=== PATIENT | female | born 1970 | race American Indian/Alaskan Native ===

== ENCOUNTER 2017-08-06 08:19 | Outpatient (CLI) | payer MEDICARE ==
--- NOTE | 2017-08-06 12:55 | Mammography Report ---
BILATERAL MAMMOGRAM with CAD: HISTORY: Cancer screening. Comparison study is dated June 15, 2015. FINDINGS: The breast tissue is heterogeneously dense, which could obscure detection of small masses (approximately 50%-75% glandular). No mass, distortion, suspicious calcification, or skin change is seen. IMPRESSION: Negative mammogram. There is no mammographic evidence of malignancy. RECOMMENDATION: Follow-up per ACS guidelines. BI-RADS CATEGORY: 1 = Negative ACR BI-RADS MAMMOGRAPHIC CODES: 0 = Needs additional imaging evaluation; 1 = Negative; 2 = Benign; 3 = Probably benign; 4 = Suspicious; 5 = Malignant; 6 = Known biopsy-proven malignancy COMMENT: 1. Dense breast tissue, i.e., adenosis, fibrocystic changes, etc., may obscure an underlying neoplasm. 2. Approximately 10% of cancers are not detected with mammography. 3. A negative mammography report should not delay biopsy if a clinically suspicious mass is present. COMMENT: Patient follow-up letters are generated in [employer].
== END 2017-08-06 08:20 | disposition home or self-care (01) ==
LOC: MAMMO 08:19
PROVIDERS: ATTEND Internal Medicine
DX: Z12.31 Encounter for screening mammogram for malignant neoplasm of breast (principal)
CPT/HCPCS: 77067; G0202

== ENCOUNTER 2018-06-29 05:26 | Emergency (ER) | payer MEDICARE ==
--- NOTE | 2018-06-29 07:00 | XRay Report ---
FINAL REPORT PROCEDURE: XR HIP 2-3V LT TECHNIQUE: LEFT hip radiographs, 2 views each, including AP view of the pelvis. HISTORY: left hip pain COMPARISON: No prior studies are available for comparison. FINDINGS: Fracture (s) and/or Dislocation(s): None . Joint space(s): Normal. Soft tissues: Normal. Bone mineralization: Normal. Foreign bodies: None. IMPRESSION: Normal Examination.
[2018-06-29] MEDS ORDERED: DELTASONE PO ONE (07:25)
[2018-06-29] MEDS ORDERED: TORADOL IM ONE (07:25)
--- NOTE | 2018-06-29 07:39 | Emergency Department Report ---
ED Back Pain/Injury HPI - General Chief Complaint: Extremity Injury, Lower Stated Complaint: HIP PAIN Time Seen by Provider: 06/29/18 07:24 Source: patient Limitations: No Limitations - History of Present Illness Initial Comments: This is a 47-year-old female nontoxic, well nourished in appearance, no acute signs of distress presents to the ED with c/o of acute on chronic lower back pain. Patient stated pain is intermittent and worsened with movement and relied with rest and supine position. Patient stated that this morning she wake up with sudden onset of left lower back pain. Patient does has history of lumbar surgeries with plates and screws placed. Patient states has history of sciatica nerve pain which is similar symptoms as today. Patient states that pain radiates through to his left hip/lower extremity. Patient denies any trauma. Denies any bladder or bowel instability. Patient denies any urinary symptoms. Denies any fever, chills, nausea, vomiting, headache, stiff neck, chest pain or shortness of breath. Patient denies any numbness or tingling. Stated allergies to Sulfa. MD Complaint: back pain -: This morning Similar Symptoms Previously: Yes Place: home Radiation: left leg Severity: mild Severity scale (0 -10): 8 Quality: aching Consistency: intermittent Improves With: immobilization, supine, sitting upright Worsens With: movement, walking Associated Symptoms: denies other symptoms. denies: confusion, weakness, numbness, difficulty walking, cough, difficulty urinating, diaphoresis, incontinence, fever/chills, constipation, headaches, abdominal pain, loss of appetite, malaise, nausea/vomiting, rash, seizure, shortness of breath, syncope - Related Data Home Medications Medication Instructions Recorded Confirmed Last Taken HYDROcodone/APAP 5-325 [[place] 1 each PO Q12HR PRN 11/07/15 05/02/16 05/01/16 09: 00 5-325 mg TAB] Previous Rx's Medication Instructions Recorded Last Taken Type Naproxen [Naprosyn TAB] 500 mg PO BID PRN #30 tablet 11/07/15 05/01/16 09:00 Rx Lisinopril [Zestril] 40 mg PO DAILY #30 tablet 05/02/16 Unknown Rx Metoprolol Xl [Metoprolol 100 mg PO QDAY #30 tablet 05/02/16 Unknown Rx SUCCINATE ER TAB] metroNIDAZOLE 0.75%(NF) [Metrogel 1 applicatio TP BID #1 tube 05/02/16 Unknown Rx 0.75% TOPICAL] metroNIDAZOLE [Flagyl] 500 mg PO Q12HR #14 tab 05/02/16 Unknown Rx Cyclobenzaprine [Flexeril] 10 mg PO QHS PRN #10 tablet 06/29/18 Unknown Rx Ibuprofen [Motrin] 600 mg PO Q8H PRN #20 tablet 06/29/18 Unknown Rx Allergies Allergy/AdvReac Type Severity Reaction Status Date / Time Sulfa (Sulfonamide Allergy Unknown Verified 11/07/15 06:58 Antibiotics) ED Review of Systems ROS: Stated complaint: HIP PAIN Other details as noted in HPI Constitutional: denies: chills, fever Eyes: denies: eye pain, eye discharge, vision change ENT: denies: ear pain, throat pain Respiratory: denies: cough, shortness of breath, wheezing Cardiovascular: denies: chest pain, palpitations Endocrine: no symptoms reported Gastrointestinal: denies: abdominal pain, nausea, diarrhea Genitourinary: denies: urgency, dysuria, discharge Musculoskeletal: back pain, arthralgia. denies: joint swelling Skin: denies: rash, lesions Neurological: denies: headache, weakness, paresthesias Psychiatric: denies: anxiety, depression Hematological/Lymphatic: denies: easy bleeding, easy bruising ED Past Medical Hx - Past Medical History Hx Hypertension: Yes Additional medical history: multiple herniated discs. pt in physical theraphy relearning to walk. - Surgical History Additional Surgical History: spinal cord surgery - Social History Smoking Status: Current Every Day Smoker Substance Use Type: None - Medications Home Medications: Home Medications Medication Instructions Recorded Confirmed Last Taken Type HYDROcodone/APAP 5-325 [[place] 1 each PO Q12HR PRN 11/07/15 05/02/16 05/01/16 09: 00 History 5-325 mg TAB] Naproxen [Naprosyn TAB] 500 mg PO BID PRN #30 tablet 11/07/15 05/02/16 05/01/16 09:00 Rx Lisinopril [Zestril] 40 mg PO DAILY #30 tablet 05/02/16 Unknown Rx Metoprolol Xl [Metoprolol 100 mg PO QDAY #30 tablet 05/02/16 Unknown Rx SUCCINATE ER TAB] metroNIDAZOLE 0.75%(NF) [Metrogel 1 applicatio TP BID #1 tube 05/02/16 Unknown Rx 0.75% TOPICAL] metroNIDAZOLE [Flagyl] 500 mg PO Q12HR #14 tab 05/02/16 Unknown Rx Cyclobenzaprine [Flexeril] 10 mg PO QHS PRN #10 tablet 06/29/18 Unknown Rx Ibuprofen [Motrin] 600 mg PO Q8H PRN #20 tablet 06/29/18 Unknown Rx ED Physical Exam - General Limitations: No Limitations General appearance: alert, in no apparent distress - Head Head exam: Present: atraumatic, normocephalic - Eye Eye exam: Present: normal appearance Pupils: Present: normal accommodation - ENT ENT exam: Present: normal exam, mucous membranes moist - Neck Neck exam: Present: normal inspection, full ROM - Respiratory Respiratory exam: Present: normal lung sounds bilaterally. Absent: respiratory distress - Cardiovascular Cardiovascular Exam: Present: regular rate, normal rhythm. Absent: systolic murmur, diastolic murmur, rubs, gallop - GI/Abdominal GI/Abdominal exam: Present: soft, normal bowel sounds. Absent: distended, tenderness, guarding, rebound, rigid, diminished bowel sounds - Extremities Exam Extremities exam: Present: normal inspection, full ROM, normal capillary refill. Absent: tenderness, joint swelling - Expanded Lower Extremity Exam Left Hip exam: Present: normal inspection, full ROM, external rotation, internal rotation, pelvic stability. Absent: tenderness, swelling, abrasion, laceration , ecchymosis, deformity, crepidus, dislocation, erythema, shortening Upper Leg exam: Present: normal inspection, full ROM. Absent: tenderness, swelling Neuro vascular tendon exam: Present: no vascular compromise Gait: Positive: observed and normal - Back Exam Back exam: Present: normal inspection, full ROM, paraspinal tenderness (left lumbar paraspinal). Absent: tenderness, CVA tenderness (R), CVA tenderness (L) , muscle spasm, vertebral tenderness, rash noted - Expanded Back Exam Expanded Back exam: Absent: saddle anesthesia Back exam: Negative Straight Leg Raising: Left, Right - Neurological Exam Neurological exam: Present: alert, oriented X3, normal gait - Psychiatric Psychiatric exam: Present: normal affect, normal mood - Skin Skin exam: Present: warm, dry, intact, normal color. Absent: rash ED Course Vital Signs 06/29/18 05:47 Temperature 98.7 F Pulse Rate 99 H Respiratory 18 Rate Blood Pressure 152/101 O2 Sat by Pulse 97 Oximetry - Reevaluation(s) Reevaluation #1: 06/29/18 07:47 Patient is speaking in full sentences with no signs of distress noted. ED Medical Decision Making - Medical Decision Making This is a 47-year-old female that presents with low back strain. Patient is stable was examined by me. There is no spinal tenderness. There is no cauda equina syndrome during examination. No bladder or bowel instability. The pain is intermittent in and worsened with movement with no fever, due to this I'm not concerned about a spinal abscess. X-rays of lumbar and hip obtain an dictated by radiologist. Patient is notified of the x-ray reports with no questions noted by the patient. Patient received Toradol 30 mg IM and prednisone in the ED which patient stated symptoms has resolved and subsided. Patient is discharged with muscle relaxant and Motrin. Patient was instructed not to operate any machinery while taking muscle relaxant as they cause her drowsiness. Patient was referred to Follow-up with a primary care doctor in 3- 5 days or if symptoms worsen and continue return to emergency room as soon as possible. At time of discharge, the patient does not seem toxic or ill in appearance. No acute signs of distress noted. Patient agrees to discharge treatment plan of care. No further questions noted by the patient. This chart is dictated with using [employer] Dictation [employer] Critical care attestation.: If time is entered above; I have spent that time in minutes in the direct care of this critically ill patient, excluding procedure time. ED Disposition Clinical Impression: Low back strain Qualifiers: Encounter type: initial encounter Qualified Code(s): S39.012A - Strain of muscle, fascia and tendon of lower back, initial encounter Disposition: DC-01 TO HOME OR SELFCARE Is pt being admited?: No Does the pt Need Aspirin: No Condition: Stable Instructions: Muscle Strain (ED), Cyclobenzaprine (By mouth) Additional Instructions: Follow-up with your primary care doctor in 3-5 days or if symptoms worsen such as bladder or bowel stability, chest pain, short of breath, numbness or tingling sensation in extremities, headache, dizziness, visual changes, nausea vomiting, or abdominal pain, return back to emergency room as was possible. Take ibuprofen and Flexeril as prescribed. Do not operate heavy machinery while taking Flexeril due to sedation Prescriptions: Cyclobenzaprine [Flexeril] 10 mg PO QHS PRN #10 tablet PRN Reason: Muscle Spasm Ibuprofen [Motrin] 600 mg PO Q8H PRN #20 tablet PRN Reason: Pain Referrals: PRIMARY CAREMD [Primary Care Provider] - 3-5 Days PEGGY BATEMAN MD [Staff Physician] - 3-5 Days [facility] [Outside] - 3-5 Days [facility] [Outside] - 3-5 Days Forms: Work/School Release Form(ED)
--- NOTE | 2018-06-29 09:13 | XRay Report ---
FINAL REPORT PROCEDURE: XR SPINE LUMBOSACRAL 2-3V TECHNIQUE: Lumbar spine radiographs, including AP, lateral, and lumbosacral spot views. CPT 88273 HISTORY: low back pain COMPARISON: No prior studies are available for comparison. FINDINGS: Alignment: Normal. Vertebral body heights/Disk spaces: Normal. Fracture(s): None. Facets: Facet arthropathy is noted L4-5. Bone mineralization: Normal. IMPRESSION: No acute abnormality. Facet arthropathy at L4-5.
[2018-06-29 09:58] VITALS: BP 145/102
== END 2018-06-29 09:58 | disposition home or self-care (01) ==
LOC: ED 05:26
DX: S39.012A Strain of muscle, fascia and tendon of lower back, initial encounter (principal); I10 Essential (primary) hypertension; F17.200 Nicotine dependence, unspecified, uncomplicated; Z88.2 Allergy status to sulfonamides; X58.XXXA Exposure to other specified factors, initial encounter; Y93.89 Activity, other specified; Y92.89 Other specified places as the place of occurrence of the external cause; Y99.8 Other external cause status
CPT/HCPCS: 72100; 73502; 96372; 99283; J1885; J7512

== ENCOUNTER 2019-11-10 14:46 | Emergency (ER) | payer MEDICARE ==
[2019-11-10 15:01] VITALS: BP 165/104
== END 2019-11-10 18:34 | disposition left against medical advice (07) ==
LOC: ED 14:46
DX: M54.9 Dorsalgia, unspecified (principal); Z53.21 Procedure and treatment not carried out due to patient leaving prior to being seen by health care provider

== ENCOUNTER 2020-09-24 09:04 | Emergency (ER) | payer MEDICARE ==
--- NOTE | 2020-09-24 09:53 | Emergency Department Report ---
ED Female HPI - General Chief complaint: Urogenital-Female Stated complaint: STOMACH/SHOULDER/BACK PAIN Source: patient Mode of arrival: Ambulatory Limitations: No Limitations - History of Present Illness Initial comments: This is a 49-year-old female states reports that she used a new vaginal lubricant and since then she has had a fishy odor from her vagina. She is also complaining of low back pain with no known injuries. Patient states that she is prone to bacterial vaginosis she has called and schedule appointment with her PCP on October 17, 2020. But she is here today because this morning she also noticed a little blood when she wiped herself after urinating. She denies abdominal pain no fever no chest pain no shortness of breath. She is not in any acute distress. MD Complaint: other (Vaginal odor) - Related Data Home Medications Medication Instructions Recorded Confirmed Last Taken HYDROcodone/APAP 5-325 [[place] 1 each PO Q12HR PRN 11/07/15 05/02/16 05/01/16 09:00 5-325 mg TAB] Previous Rx's Medication Instructions Recorded Last Taken Type Naproxen [Naprosyn TAB] 500 mg PO BID PRN #30 tablet 11/07/15 05/01/16 09:00 Rx Lisinopril [Zestril] 40 mg PO DAILY #30 tablet 05/02/16 Unknown Rx Metoprolol Xl [Metoprolol 100 mg PO QDAY #30 tablet 05/02/16 Unknown Rx SUCCINATE ER TAB] metroNIDAZOLE 0.75%(NF) [Metrogel 1 applicatio TP BID #1 tube 05/02/16 Unknown Rx 0.75% TOPICAL] metroNIDAZOLE [Flagyl] 500 mg PO Q12HR #14 tab 05/02/16 Unknown Rx Cyclobenzaprine [Flexeril] 10 mg PO QHS PRN #10 tablet 06/29/18 Unknown Rx Ibuprofen [Motrin] 600 mg PO Q8H PRN #20 tablet 06/29/18 Unknown Rx cephALEXin [Keflex] 500 mg PO Q12HR 7 Days #14 cap 09/24/20 Unknown Rx metroNIDAZOLE [Flagyl] 500 mg PO Q12HR 7 Days #14 tab 09/24/20 Unknown Rx Allergies Allergy/AdvReac Type Severity Reaction Status Date / Time Sulfa (Sulfonamide Allergy Unknown Verified 07/25/18 15:46 Antibiotics) ED Review of Systems ROS: Stated complaint: STOMACH/SHOULDER/BACK PAIN Other details as noted in HPI ED Past Medical Hx - Past Medical History Previous Medical History?: Yes Hx Hypertension: Yes Additional medical history: multiple herniated discs. pt in physical theraphy relearning to walk. - Surgical History Past Surgical History?: Yes Additional Surgical History: spinal cord surgery - Social History Smoking Status: Current Every Day Smoker Substance Use Type: Alcohol - Medications Home Medications: Home Medications Medication Instructions Recorded Confirmed Last Taken Type HYDROcodone/APAP 5-325 [[place] 1 each PO Q12HR PRN 11/07/15 05/02/16 05/01/16 09:00 History 5-325 mg TAB] Naproxen [Naprosyn TAB] 500 mg PO BID PRN #30 tablet 11/07/15 05/02/16 05/01/16 09:00 Rx Lisinopril [Zestril] 40 mg PO DAILY #30 tablet 05/02/16 Unknown Rx Metoprolol Xl [Metoprolol 100 mg PO QDAY #30 tablet 05/02/16 Unknown Rx SUCCINATE ER TAB] metroNIDAZOLE 0.75%(NF) [Metrogel 1 applicatio TP BID #1 tube 05/02/16 Unknown Rx 0.75% TOPICAL] metroNIDAZOLE [Flagyl] 500 mg PO Q12HR #14 tab 05/02/16 Unknown Rx Cyclobenzaprine [Flexeril] 10 mg PO QHS PRN #10 tablet 06/29/18 Unknown Rx Ibuprofen [Motrin] 600 mg PO Q8H PRN #20 tablet 06/29/18 Unknown Rx cephALEXin [Keflex] 500 mg PO Q12HR 7 Days #14 cap 09/24/20 Unknown Rx metroNIDAZOLE [Flagyl] 500 mg PO Q12HR 7 Days #14 tab 09/24/20 Unknown Rx ED Physical Exam - General Limitations: No Limitations General appearance: alert, in no apparent distress - Head Head exam: Present: atraumatic, normal inspection - Eye Eye exam: Present: normal appearance - ENT ENT exam: Present: normal exam - Neck Neck exam: Present: normal inspection - Respiratory Respiratory exam: Present: normal lung sounds bilaterally - Cardiovascular Cardiovascular Exam: Present: regular rate, normal heart sounds - Extremities Exam Extremities exam: Present: normal inspection - Back Exam Back exam: Present: normal inspection - Neurological Exam Neurological exam: Present: alert, oriented X3 - Psychiatric Psychiatric exam: Present: normal affect - Skin Skin exam: Present: warm, dry, intact ED Course Vital Signs 09/24/20 09/24/20 09:21 13:37 Temperature 98.1 F 98 F Pulse Rate 82 79 Respiratory 18 20 Rate Blood Pressure 99/70 Blood Pressure 141/93 [Right] O2 Sat by Pulse 100 98 Oximetry ED Medical Decision Making - Medical Decision Making 49-year-old female complaining of low back pain and vaginal odor. Urine positive for UTI. She has history of BV will treat for BV and urinary tract infection. Instructed follow-up with PCP or [facility]ER for further evaluation of any STDs Critical Care Time: No Critical care attestation.: If time is entered above; I have spent that time in minutes in the direct care of this critically ill patient, excluding procedure time. ED Disposition Clinical Impression: BV (bacterial vaginosis) UTI (urinary tract infection) Qualifiers: Urinary tract infection type: acute cystitis Hematuria presence: with hematuria Qualified Code(s): N30.01 - Acute cystitis with hematuria Disposition: TO HOME OR SELFCARE Is pt being admited?: No Does the pt Need Aspirin: No Condition: Stable Instructions: Antibiotic Medicine, Adult, [id number], Urinary Tract Infection, Adult, Vaginitis, Bacterial Vaginosis (ED), Bacterial Vaginosis, [id number] Additional Instructions: Drink plenty fluids. Do not hold your urine void after sex. Follow-up with your primary care doctor in 3 to 5 days or sooner for any worsening symptoms. Take [id number] Tylenol or Advil as directed by package insert for any pain Prescriptions: metroNIDAZOLE [Flagyl] 500 mg PO Q12HR 7 Days #14 tab cephALEXin [Keflex] 500 mg PO Q12HR 7 Days #14 cap Referrals: LOUISA COLLIER MD [Primary Care Provider] - 3-5 Days DESIRAE WINTERS MD [Staff Physician] - 3-5 Days Forms: STI Treatment and Prevention Time of Disposition: 13:28 Print Language: LEBANESE
[2020-09-24 13:23] LABS: Bacteria,Urine 1+ /HPF (Negative); Bilirubin,Urine NEG (Negative); Blood,Urine LG (Negative); Color,Urine Red (Yellow); Mucus,Urine FEW /HPF; RBC,Urine > 182.0 /HPF (0.0-6.0); Urobilinogen,Urine < 2.0 mg/dL (<2.0)
[2020-09-24 13:38] VITALS: BP 141/93
== END 2020-09-24 13:38 | disposition home or self-care (01) ==
LOC: ED 09:04
DX: N39.0 Urinary tract infection, site not specified (principal); N76.0 Acute vaginitis; B96.89 Other specified bacterial agents as the cause of diseases classified elsewhere; I10 Essential (primary) hypertension; F17.200 Nicotine dependence, unspecified, uncomplicated; Z98.890 Other specified postprocedural states; Z79.1 Long term (current) use of non-steroidal anti-inflammatories (NSAID); Z79.899 Other long term (current) drug therapy; Z88.2 Allergy status to sulfonamides
CPT/HCPCS: 81001; 87086

== ENCOUNTER 2021-11-18 09:27 | Emergency (ER) | payer MEDICARE ==
[2021-11-18 09:58] VITALS: BP 156/100
--- NOTE | 2021-11-18 10:31 | Emergency Department Report ---
ED General Adult HPI - General Chief complaint: Urogenital-Female Stated complaint: BV Time Seen by Provider: 11/18/21 10:00 Source: patient Mode of arrival: Ambulatory Limitations: No Limitations - History of Present Illness Initial comments: 50-year-old -[place] female patient presents with complaints of bacterial vaginosis x a few days. 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 Patient states her ENVIRONMENTAL ENGINEERING AIDE instructed her to try boric acid suppositories and she states there is no improvement in her symptoms after 2 days of using these. Patient states her symptoms are mild vaginal discharge that has a fishy odor. She denies any vaginal pain, abdominal pain, dysuria/hematuria/urinary frequency, dyspareunia, or vaginal lesions. Drug allergies include sulfa. Severity scale (0 -10): 0 - Related Data Home Medications Medication Instructions Recorded Confirmed Last Taken HYDROcodone/APAP 5-325 [[place] 1 each PO Q12HR PRN 11/07/15 05/02/16 05/01/16 09:00 5-325 mg TAB] Previous Rx's Medication Instructions Recorded Last Taken Type Naproxen [Naprosyn TAB] 500 mg PO BID PRN #30 tablet 11/07/15 05/01/16 09:00 Rx Lisinopril [Zestril] 40 mg PO DAILY #30 tablet 05/02/16 Unknown Rx Metoprolol Xl [Metoprolol 100 mg PO QDAY #30 tablet 05/02/16 Unknown Rx SUCCINATE ER TAB] metroNIDAZOLE 0.75%(NF) [Metrogel 1 applicatio TP BID #1 tube 05/02/16 Unknown Rx 0.75% TOPICAL] metroNIDAZOLE [Flagyl] 500 mg PO Q12HR #14 tab 05/02/16 Unknown Rx Cyclobenzaprine [Flexeril] 10 mg PO QHS PRN #10 tablet 06/29/18 Unknown Rx Ibuprofen [Motrin] 600 mg PO Q8H PRN #20 tablet 06/29/18 Unknown Rx cephALEXin [Keflex] 500 mg PO Q12HR 7 Days #14 cap 09/24/20 Unknown Rx metroNIDAZOLE [Flagyl TAB] 500 mg PO Q12HR 7 Days #14 tab 11/18/21 Unknown Rx Allergies Allergy/AdvReac Type Severity Reaction Status Date / Time Sulfa (Sulfonamide Allergy Unknown Verified 07/25/18 15:46 Antibiotics) ED Review of Systems ROS: Stated complaint: BV Other details as noted in HPI Constitutional: denies: chills, diaphoresis, fever, malaise, weakness Gastrointestinal: denies: abdominal pain Genitourinary: discharge. denies: urgency, dysuria, frequency, hematuria, abnormal menses, dyspareunia Hematological/Lymphatic: denies: swollen glands ED Past Medical Hx - Past Medical History Hx Hypertension: Yes Additional medical history: multiple herniated discs. pt in physical theraphy relearning to walk. - Surgical History Additional Surgical History: spinal cord surgery - Social History Smoking Status: Current Some Day Smoker Substance Use Type: Alcohol - Medications Home Medications: Home Medications Medication Instructions Recorded Confirmed Last Taken Type HYDROcodone/APAP 5-325 [[place] 1 each PO Q12HR PRN 11/07/15 05/02/16 05/01/16 09:00 History 5-325 mg TAB] Naproxen [Naprosyn TAB] 500 mg PO BID PRN #30 tablet 11/07/15 05/02/16 05/01/16 09:00 Rx Lisinopril [Zestril] 40 mg PO DAILY #30 tablet 05/02/16 Unknown Rx Metoprolol Xl [Metoprolol 100 mg PO QDAY #30 tablet 05/02/16 Unknown Rx SUCCINATE ER TAB] metroNIDAZOLE 0.75%(NF) [Metrogel 1 applicatio TP BID #1 tube 05/02/16 Unknown Rx 0.75% TOPICAL] metroNIDAZOLE [Flagyl] 500 mg PO Q12HR #14 tab 05/02/16 Unknown Rx Cyclobenzaprine [Flexeril] 10 mg PO QHS PRN #10 tablet 06/29/18 Unknown Rx Ibuprofen [Motrin] 600 mg PO Q8H PRN #20 tablet 06/29/18 Unknown Rx cephALEXin [Keflex] 500 mg PO Q12HR 7 Days #14 cap 09/24/20 Unknown Rx metroNIDAZOLE [Flagyl TAB] 500 mg PO Q12HR 7 Days #14 tab 11/18/21 Unknown Rx ED Physical Exam - General Limitations: No Limitations General appearance: alert, in no apparent distress - Head Head exam: Present: atraumatic, normocephalic - Eye Eye exam: Present: normal appearance. Absent: scleral icterus - Respiratory Respiratory exam: Absent: respiratory distress - Cardiovascular Cardiovascular Exam: Present: regular rate - GI/Abdominal GI/Abdominal exam: Present: soft. Absent: tenderness - Neurological Exam Neurological exam: Present: alert, oriented X3 - Psychiatric Psychiatric exam: Present: normal affect, normal mood - Skin Skin exam: Present: warm, dry, intact, normal color. Absent: rash ED Course Vital Signs 11/18/21 11/18/21 09:56 09:58 Temperature 98.1 F 98.1 F Pulse Rate 108 H 100 H Respiratory 18 18 Rate Blood Pressure 156/100 Blood Pressure 156/100 [Right] O2 Sat by Pulse 98 98 Oximetry ED Medical Decision Making - Medical Decision Making 50-year-old -[place] female patient presents with complaints of bacterial vaginosis x a few days. 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 Patient states her ENVIRONMENTAL ENGINEERING AIDE instructed her to try boric acid suppositories and she states there is no improvement in her symptoms after 2 days of using these. Patient states her symptoms are mild vaginal discharge that has a fishy odor. She denies any vaginal pain, abdominal pain, dysuria/hematuria/urinary frequency, dyspareunia, or vaginal lesions. Drug allergies include sulfa. Patient states she has no suspicion of STIs and has had no risky sexual behavior Given history, will treat patient empirically for BV with Flagyl. Recommend she follows up with her ENVIRONMENTAL ENGINEERING AIDE within 1 to 2 weeks. Discussed in detail signs and symptoms that should prompt immediate return to the ED with patient verbalized understanding. Patient also informed to follow-up with primary care provider for her hypertension, she does state history of this Critical care attestation.: If time is entered above; I have spent that time in minutes in the direct care of this critically ill patient, excluding procedure time. ED Disposition Clinical Impression: Bacterial vaginosis Disposition: HOME / SELF CARE / HOMELESS Is pt being admited?: No Condition: Stable Instructions: Bacterial Vaginosis, [id number], Bacterial Vaginosis (ED) Prescriptions: metroNIDAZOLE [Flagyl TAB] 500 mg PO Q12HR 7 Days #14 tab Referrals: [facility] [Provider Group] - 7-10 days
== END 2021-11-18 10:41 | disposition home or self-care (01) ==
LOC: ED 09:27
DX: N76.0 Acute vaginitis (principal); B96.89 Other specified bacterial agents as the cause of diseases classified elsewhere; I10 Essential (primary) hypertension; Z98.890 Other specified postprocedural states; F17.200 Nicotine dependence, unspecified, uncomplicated; Z88.1 Allergy status to other antibiotic agents
CPT/HCPCS: 99282

== ENCOUNTER 2022-03-17 08:59 | Emergency (ER) | payer MEDICARE ==
[2022-03-17 09:18] VITALS: BP 122/95
== END 2022-03-18 08:30 | disposition left against medical advice (07) ==
LOC: ED 08:59
DX: H10.029 Other mucopurulent conjunctivitis, unspecified eye (principal); Z53.21 Procedure and treatment not carried out due to patient leaving prior to being seen by health care provider